=== PATIENT | female | born 1995 | race Caucasian/White ===

== ENCOUNTER → 2022-07-25 | Outpatient (CLI) | payer OTHER ==
[2022-07-25 14:23] LABS: Basophils # (A) 0.01 X 10*3/uL (0.00-0.10); Basophils % (A) 0.2 %; Eosinophils # (A) 0.17 X 10*3/uL (0.04-0.35); Eosinophils % (A) 3.9 %; HCT 37.2 % (37.2-46.3); HGB 12.6 g/dL (12.0-15.0); Immature Grans, Automated 0.2 %; Lymphocytes # (A) 1.77 X 10*3/uL (0.90-5.00); MCH 30.2 pg (27.0-32.0); MCHC 33.9 g/dL (32.0-37.0); MCV 89.2 fL (80.0-97.0); Mean Platelet Volume 9.1 fL (9.5-12.2); Monocytes # (A) 0.36 X 10*3/uL (0.20-1.00); Monocytes % (A) 8.3 %; NRBC Per 100 WBC 0 /100 WBCS (0.0-0.0); Neutrophils % (A) 46.4 %; Platelet Count 327 X 10*3/uL (140-440); RBC 4.17 X 10*6/uL (4.10-5.20); RDW 12.3 % (11.5-14.5); WBC 4.32 X 10*3/uL (4.50-10.00)
== END | disposition home or self-care (01) ==
LOC: LABPAT 08:44
PROVIDERS: ATTEND Obstetrics & Gynecology
DX: Z01.812 Encounter for preprocedural laboratory examination (principal); N84.0 Polyp of corpus uteri
CPT/HCPCS: 85025

== ENCOUNTER 2022-08-01 05:43 | Day surgery (SDC) | payer OTHER ==
[2022-07-27 15:43] VITALS: BMI 23.3
--- NOTE | 2022-07-31 13:45 | HP ---
HISTORY AND PHYSICAL PROCEDURE DATE: 08/01/2022 HISTORY: This is a 27-year-old 0 woman with a 1-year history of bleeding in between menstrual cycles. Recent ultrasound shows a 1.7 cm intrauterine polyp. She is scheduled to undergo diagnostic hysteroscopy with D and C and polypectomy. ALLERGIES: None. MEDICATIONS: 1. Ventolin inhaler 1 puff q.6 hours p.r.n. 2. Zyrtec 10 mg daily. PAST MEDICAL HISTORY: Asthma. PAST SURGICAL HISTORY: [place] teeth removal. PAST SOCIAL SCIENCES PROFESSOR HISTORY: She is a 0 with the above menstrual history. Her partner has had a vasectomy. SOCIAL HISTORY: She is . Negative for tobacco, alcohol, and drug use. FAMILY HISTORY: Positive for diabetes in a grandmother. REVIEW OF SYSTEMS: A 12-point review of systems negative except for irregular menses. PHYSICAL EXAMINATION: VITAL SIGNS: Blood pressure 130/75, heart rate 97, weight 144 pounds, and height 5 feet 6 inches. HEENT: Unremarkable with no palpable lymphadenopathy or thyromegaly. LUNGS: Clear to auscultation bilaterally. HEART: Regular rate and rhythm. ABDOMEN: Slim, soft and nontender with no flank pain. WINDOW FRAMER: On pelvic examination, she has normal female external genitalia without lesions or irritation. On bimanual examination, the uterus is small, freely mobile and in the midline with no palpable adnexal masses. NEUROLOGIC: She has no gross deficits. Mood and affect are normal. ASSESSMENT: A 27-year-old 0 woman with 1-year history of bleeding in between menstrual cycles, who was found to have an endometrial polyp. She is scheduled to undergo diagnostic hysteroscopy with D and C and probable polypectomy. This procedure has been reviewed with the patient in detail including anticipated hospital course and recovery time. Risks were reviewed and include bleeding, infection, transfusion, uterine perforation with injury to possible structures in the pelvis, ongoing bleeding post procedure and/or anesthetic complications. Consent has been obtained and she is scheduled for this procedure on 08/01/2022. MMODL / IJN: [id number] /
[~2022-08-01 05:43] MED LIST: Pre Op ABX Message 1 EACH MISC MISCELLANE ONE
[2022-08-01] MEDS ORDERED: ONDANSETRON 4 MG/2 ML VIAL IVP ONE (06:08)
[2022-08-01] MEDS ORDERED: LACTATED RINGERS 1,000 ML IV SCH (06:08)
[2022-08-01] MEDS ORDERED: DEXAMETHASONE SOD PHOSPHATE 4 MG/ML 1 ML VIAL IV ONE (06:08)
[2022-08-01] MEDS ORDERED: LIDOCAINE 1% (10MG/ML) FOR IV START INTRADERMA PRN (06:08)
[2022-08-01] MEDS ORDERED: SCOPOLAMINE 1 MG/72 HR PATCH TRANSDERM ONE (06:08)
[2022-08-01 06:33] VITALS: RESP 16
[2022-08-01] MEDS ORDERED: LIDOCAINE 1%-EPI 1:100,000 20 ML VIAL SUBMUCOSAL ONE ×2 (06:48→07:16)
[2022-08-01] MEDS ORDERED: HYDROmorphone 0.5 MG/0.5 ML SYRINGE IVP PRN (07:00)
[2022-08-01] MEDS ORDERED: PROPOFOL 10 MG/ML 20 ML VIAL IV ONE (07:04)
[2022-08-01] MEDS ORDERED: fentaNYL (PF) 50 MCG/ML 2 ML AMP ONE (07:04)
[2022-08-01] MEDS ORDERED: MIDAZOLAM 2 MG/2 ML VIAL ONE (07:04)
[2022-08-01] MEDS ORDERED: LIDOCAINE 2% INJ 20 MG/ML (2 ML VIAL) ONE (07:04)
[2022-08-01] MEDS ORDERED: LACTATED RINGERS 1,000 ML IV ONE (07:26)
[2022-08-01] MEDS ORDERED: KETOROLAC 15 MG/ML 1 ML VIAL IVP ONE (07:44)
[2022-08-01 07:48] VITALS: TEMP 98.2
--- NOTE | 2022-08-01 07:53 | P.OP ---
Date of Procedure: 08/01/22 Preoperative Diagnosis: Intermenstrual bleeding Endometrial polyp on ultrasound Postoperative Diagnosis: Iintermenstrual bleeding Endometrial polyp Procedure(s) Performed: Diagnostic hysteroscopy with D&C and polypectomy Anesthesia: MAC Surgeon: Amy Mcdermott Estimated Blood Loss (ml): 5 IV fluids (ml): 400 Urine output (ml): 10 Pathology: other (Endometrial curettings) Condition: stable Disposition: PACU Indications for Procedure: 1 year history of bleeding in between periods. Findings consistent with endometrial polyp on pelvic ultrasound. Operative Findings: Retroverted uterus. On diagnostic hysteroscopy there is a single polyp emanating from the lower posterior fundal region. Bilateral tubal ostia are visualized. No evidence of uterine septum or bicornuate uterus. Description of Procedure: The patient was met in the preoperative holding area and all questions were answered. She was taken to the operating room where anesthetic was administered without incident. Appropriate timeout procedure was undertaken. She was positioned, prepped and draped in the dorsal high lithotomy position. Exam under anesthetic was undertaken and the uterus was felt to be significantly retroverted with no adnexal masses appreciated. Bladder was drained for approximately 10 mL of clear urine. Speculum was placed in the vagina and the cervix was grasped anteriorly with a single-tooth tenaculum. Paracervical block with lidocaine plus epinephrine was placed. The uterus was sounded to 9 cm. The cervix was then carefully dilated to allow for passage of the [place] sure hysteroscope. The hysteroscope was introduced and the endocervical canal was carefully followed. There is no evidence of a bicornuate secondary cervical os or passage. The hysteroscope was advanced carefully the uterus was retroverted. There is a large polyp emanating from the low posterior fundal area of the uterus. The bilateral tubal ostia are visualized. The hysteroscope was removed and the cervix was further dilated to allow for passage of the stone polyp forceps. The polyp forceps were introduced and the polyp was grasped and removed without difficulty. The sharp banjo curette was then introduced and the endometrial cavity was circumferentially curettaged with a moderate amount of additional tissue obtained. The hysteroscope was then reintroduced. The polyp was noted to be completely removed. There were no other intracavitary lesions appreciated. There is no active bleeding. The bilateral tubal ostia were easily visualized. The hysteroscope was then removed. Tenaculum was removed and the cervix was observed. No active bleeding was appreciated. All instruments were then removed from the vagina. The patient was awoken from anesthetic and transported recovery area in good condition. Counts reported as correct.
[2022-08-01 08:39] VITALS: BP 102/73; PULSE 67
== END 2022-08-01 09:03 | disposition home or self-care (01) ==
LOC: OR 05:43
PROVIDERS: ATTEND Obstetrics & Gynecology
DX: N92.3 Ovulation bleeding (principal); N84.0 Polyp of corpus uteri; J45.909 Unspecified asthma, uncomplicated; Z83.3 Family history of diabetes mellitus
CPT/HCPCS: 81025; 88305; 58558; J2250; J1100; J2405; J3010; J1885; J2704; J2001